=== PATIENT | female | born 1955 | race Caucasian/White ===

== ENCOUNTER 2024-12-22 09:00 | Outpatient (RCR) | payer MEDICARE, OTHER, SELFPAY ==
--- NOTE | 2024-09-07 10:02 | HP.PTEVAL_ITS ---
Patient's Visit Information Visit Information Visit Information: ABRAHAM ZHAO is a 69 year old F referred to Physical Therapy by BE HIGGINS with a diagnosis of Trochanteric bursitis left hip, M70.62. Date of Evaluation: 09/07/24 Physical Therapist: Pedro Neal Visit Plan Frequency: 2x /Week Duration: 4-6 Weeks Plan: Continue with improving hip strength especially hip abductor strengthening, core/back strengthening, and balance exercises. Use manual therapy and modalities as needed for pain control. Subjective Subjective: Pt. is a 69 y.o. female who has had left hip pain since around March with no specific injury that she is aware of. She had a couple cortisone injections which helped but then she continued to notice some pain. Her PLOF includes history of left THR in 2008. Pt. had x-ray of her left hip which was negative. Pt. denies any back pain. She also denies any radicular symptoms. Pt. denies any falls in the last six months. Pt. denies any numbness or tingling. She has difficulty with sit to stand transition, ascending/descending stairs, squatting, walking on uneven ground, and occasional yard work. Pt. is retired and was in sales previously. Her goal with physical therapy is to have less pain and be able to move better. She has had previous physical therapy for multiple things. She denies any pain currently, at worst 3/10 and describes the pain as dull. She will take Advil for pain. Her PMH includes skin cancer, multiple sclerosis, left THR, tonsillectomy, right ovary removed, , bilateral foot buniectomies, and right finger surgery. Pt. lives with her and her father in a one story home with two steps to enter. Her hobbies include gardening and reading. Objective Objective: Palpation- No tenderness to palpation Hip PROM- WNL bilaterally Pelvis and leg length- left leg shorter than right in supine. Normal pelvis. Left LE strength hip flexion 4+/5, abduction 4-/5, adduction 5/5, extension 4/5, knee flexion 5/5, knee extension 5/5, ankle DF 5/5, ankle PF 5/5 Right LE strength hip flexion 4+/5, abduction 4/5, adduction 5/5, extension 4/5, knee flexion 5/5, knee extension 5/5, ankle DF 5/5, ankle PF 5/5 Left tandem 17 secs, right tandem 30 secs Left SLS 1 sec, right 2 secs Gait- Pt. ambulates with genu valgus of right knee. Balance/Special Test Scores Lower Extremity Functional Score: 62 Goals Goal 1:: Pt. will improve left LE strength to 4+/5 for all motions in order to improve mobility. Goal Time Frame: 4-6 Weeks Goal 2:: Pt. will have no pain with sit to stand transition. Goal Time Frame: 4-6 Weeks Goal 3:: Pt. will be able to squat with no hip pain. Goal Time Frame: 4-6 Weeks Goal 4:: Pt. will be able to complete tandem stance for 30 secs in order to improve stability and balance. Goal Time Frame: 4-6 Weeks Goal 5:: Pt. will rate left hip pain at worst at 3/10 with ADL's. Goal Time Frame: 4-6 Weeks Goal 6:: Pt. will improve LEFS score <20% in order to improve mobility. Goal Time Frame: 4-6 Weeks Rehabilitation Potential Physical Therapy Diagnosis: Decreased LE strength, difficulty walking, balance impairment, and pain. Pt. presents at this time with left hip gluteal tendinopathy. Rehabilitation Potential: Good Anticipated Interventions Patient/Client Instruction: Educate patient on: Condition, Plan of Care and Benefits of Fitness Program For the Purpose of:: To decrease pain, To improve ability to perform ADL's, To improve performance and independence with ADL's, To assume or resume ADL's and To improve tolerance to ADL's Therapeutic Exercise to Include: Strength training, Endurance training, Balance training, Flexibilty training, Gait and locomotor training and Dynamic Lumbar Stabilization Comment: Continue with hip strengthening especially hip abductor strengthening, core, and back strengthening as well as balance exercises. For the Purpose of:: To decrease pain, To improve ability to perform ADL's, To improve performance and independence with ADL's, To improve endurance, To improve balance, To assume or resume ADL's and To improve tolerance to ADL's Functional Training to Include: ADL Training and Gait training For the Purpose of:: To decrease pain, To improve ability to perform ADL's, To improve performance and independence with ADL's, To improve balance, To improve safety with gait, To improve safety and To improve tolerance to ADL's Manual Therapy Techniques to Include: Mobilization and Soft tissue mobilization For the Purpose of:: To decrease pain, To improve ability to perform ADL's, To improve performance and independence with ADL's, To improve balance, To improve safety with gait, To assume or resume ADL's and To improve tolerance to ADL's TENS: Yes IF ES: Yes Cryotherapy (ice pack, ice massage): Yes Thermo therapy (hot pack): Yes For the Purpose of:: To decrease pain, To decrease swelling/inflammation, To improve ability to perform ADL's, To improve performance and independence with ADL's and To improve tolerance to ADL's Text: Thank you for the opportunity to evaluate your patient. For Medicare and Medicare HMO plans, please review the plan of care and approve it. It will need to be FAXED BACK to us at [phone] for Medicare purposes. For Medicare only, by signing this I certify the plan of care. Please let me know if there are questions or concerns regarding this plan of care. Physician Signature: Date:____
--- NOTE | 2024-10-12 09:08 | HP.PTREVAL ---
Re-Evaluation Intro: BERNADINE HOUSTON, ELVIS-C, It has been my pleasure to treat ABRAHAM ZHAO over the last 10 visits for Trochanteric bursitis left hip, M70.62. Please see the progress note below for an update on the physical therapy plan of care! Subjective Subjective: Pt. reports overall doing better. Pt. reports using her cane less, but still has too use it at times. Pain is mostly gone now adays. Objective Objective/Function: MMT: RLE: knee ext 35.5#, flex 21.4#; hip: flexion 34.4#, abd 27.7#, ext 29.6# LLE: knee: ext 36.4#, flex 19.7#, hip: [id number]#, abd 20.8#, ext 21.9# sit to stand: 8 without UEs. STAIRS: Pt. is able to complete with 1 HR with reciprocal pattern, but marked weakness in LLE with loading, ascending was more challenging than descending. Plan Plan Plan: I am extending her POC x2 per week for 4 weeks. Cont. to work on progressive strengthening of her glutes, glute med, abd hip flexors. Add in stability in SLS. Add in CKC dynamic stability, step ups and hip strengthening. Balance/Gait/Functional tests Balance/Special Test Scores Functional Gait Assessment Score: 19 % Disability: 36.6700 Lower Extremity Functional Score: 51 30 Second Chair Rise Test Seconds: 8 Goals Goals Goal 1:: Pt. will improve left LE strength to 4+/5 for all motions in order to improve mobility. Goal Time Frame: 4-6 Weeks Goal Progress: Progressing Goal 2:: Pt. will have no pain with sit to stand transition. Goal Time Frame: 4-6 Weeks Goal Progress: Progressing Goal 3:: Pt. will be able to squat with no hip pain. Goal Time Frame: 4-6 Weeks Goal Progress: Goal Met Goal 4:: Pt. will be able to complete tandem stance for 30 secs in order to improve stability and balance. Goal Time Frame: 4-6 Weeks Goal Progress: Progressing Goal 5:: Pt. will rate left hip pain at worst at 3/10 with ADL's. Goal Time Frame: 4-6 Weeks Goal Progress: Goal Met Goal 6:: Pt. will improve LEFS score <20% in order to improve mobility. Goal Time Frame: 4-6 Weeks Goal Progress: Progressing Anticipated Interventions Anticipated Interventions Patient/Client Instruction: Educate patient on: Condition, Plan of Care and Benefits of Fitness Program For the Purpose of:: To decrease pain, To improve ability to perform ADL's, To improve performance and independence with ADL's, To assume or resume ADL's and To improve tolerance to ADL's Therapeutic Exercise to Include: Strength training, Endurance training, Balance training, Flexibilty training, Gait and locomotor training and Dynamic Lumbar Stabilization Comment: Continue with hip strengthening especially hip abductor strengthening, core, and back strengthening as well as balance exercises. For the Purpose of:: To decrease pain, To improve ability to perform ADL's, To improve performance and independence with ADL's, To improve endurance, To improve balance, To assume or resume ADL's and To improve tolerance to ADL's Functional Training to Include: ADL Training and Gait training For the Purpose of:: To decrease pain, To improve ability to perform ADL's, To improve performance and independence with ADL's, To improve balance, To improve safety with gait, To improve safety and To improve tolerance to ADL's Manual Therapy Techniques to Include: Mobilization and Soft tissue mobilization For the Purpose of:: To decrease pain, To improve ability to perform ADL's, To improve performance and independence with ADL's, To improve balance, To improve safety with gait, To assume or resume ADL's and To improve tolerance to ADL's TENS: Yes IF ES: Yes Cryotherapy (ice pack, ice massage): Yes Thermo therapy (hot pack): Yes For the Purpose of:: To decrease pain, To decrease swelling/inflammation, To improve ability to perform ADL's, To improve performance and independence with ADL's and To improve tolerance to ADL's Re-Evaluation Ending Re-evaluation ending: Please do not hesitate to contact me at [phone] by phone or if you have questions or concerns regarding this new plan of care! Sincerely, Edgardo Sanchez DPT
--- NOTE | 2024-11-09 09:33 | HP.PTREVAL ---
Re-Evaluation Intro: BERNADINE HOUSTON, ELVIS-Chelo, It has been my pleasure to treat ABRAHAM ZHAO over the last 16 visits for Trochanteric bursitis left hip, M70.62. Please see the progress note below for an update on the physical therapy plan of care! Subjective Subjective: Pt. reports having some soreness, but not pain in her L hip. Pt. reports being tired from her workout yesterday. Pt. reports being being 60% better overall. Pt. uses cane in evenings, but not much throughout the day. Pt. has days where she feels great and days where she is more in the 50% range. Objective Objective/Function: ROM: good ROM throughout B hips. Good HS length. MMT: RLE: hip: flexion 32.1#, abd 29.5#, ext 21.4# LLE: hi: flexion 25.9#, abd 23.6#, ext 18.9# PT. is able to complete sit to stand from slightly elevated chair with 1 pad. Pt. did so without pain, but does have some marked weakness. Increased wt. shift to R side. GAIT: pt. ambulates with SPC with good tolerance and improved pattern. Pt. reports no marked hip pain with gait. Plan Plan Plan: Progress gym exercises. Focus on glute, core and BLE strengthening. Progress to I program. Balance/Gait/Functional tests Balance/Special Test Scores Functional Gait Assessment Score: 19 % Disability: 36.6700 Lower Extremity Functional Score: 60 30 Second Chair Rise Test Seconds: 8 Goals Goals Goal 1:: Pt. will improve left LE strength to 4+/5 for all motions in order to improve mobility. Goal Time Frame: 4-6 Weeks Goal Progress: Goal Met Goal 2:: Pt. will have no pain with sit to stand transition. Goal Time Frame: 4-6 Weeks Goal Progress: Goal Met Goal 3:: Pt. will be able to squat with no hip pain. Goal Time Frame: 4-6 Weeks Goal Progress: Goal Met Goal 4:: Pt. will be able to complete tandem stance for 30 secs in order to improve stability and balance. Goal Time Frame: 4-6 Weeks Goal Progress: Goal Met Goal 5:: Pt. will rate left hip pain at worst at 3/10 with ADL's. Goal Time Frame: 4-6 Weeks Goal Progress: Goal Met Goal 6:: Pt. will improve LEFS score <20% in order to improve mobility. Goal Time Frame: 4-6 Weeks Goal Progress: Progressing Anticipated Interventions Anticipated Interventions Patient/Client Instruction: Educate patient on: Condition, Plan of Care and Benefits of Fitness Program For the Purpose of:: To decrease pain, To improve ability to perform ADL's, To improve performance and independence with ADL's, To assume or resume ADL's and To improve tolerance to ADL's Therapeutic Exercise to Include: Strength training, Endurance training, Balance training, Flexibilty training, Gait and locomotor training and Dynamic Lumbar Stabilization Comment: Continue with hip strengthening especially hip abductor strengthening, core, and back strengthening as well as balance exercises. For the Purpose of:: To decrease pain, To improve ability to perform ADL's, To improve performance and independence with ADL's, To improve endurance, To improve balance, To assume or resume ADL's and To improve tolerance to ADL's Functional Training to Include: ADL Training and Gait training For the Purpose of:: To decrease pain, To improve ability to perform ADL's, To improve performance and independence with ADL's, To improve balance, To improve safety with gait, To improve safety and To improve tolerance to ADL's Manual Therapy Techniques to Include: Mobilization and Soft tissue mobilization For the Purpose of:: To decrease pain, To improve ability to perform ADL's, To improve performance and independence with ADL's, To improve balance, To improve safety with gait, To assume or resume ADL's and To improve tolerance to ADL's TENS: Yes IF ES: Yes Cryotherapy (ice pack, ice massage): Yes Thermo therapy (hot pack): Yes For the Purpose of:: To decrease pain, To decrease swelling/inflammation, To improve ability to perform ADL's, To improve performance and independence with ADL's and To improve tolerance to ADL's Re-Evaluation Ending Re-evaluation ending: Please do not hesitate to contact me at [phone] by phone or if you have questions or concerns regarding this new plan of care! Sincerely, Edgardo Sanchez DPT
--- NOTE | 2024-12-22 09:32 | HP.PTDCSUM_ITS ---
Discharge Summary D/C summary: It has been my pleasure to treat ABRAHAM ZHAO referred by BE HIGGINS, with the diagnosis of Trochanteric bursitis left hip, M70.62 for a total of 28 visit(s). Discharge Date: Please see the following information for a summary of their discharge status. Subjective Subjective: Pt. reports overall her L hip is doing great. She does have some small wound, drainage on her L medial distal LEs. Looks like it might be cellulitis. Pt. is going to urgent care later today. Pain L hip: Pain Intensity (Out of 10): 0 Overall Improvement % Improvement: 80 Objective Objective/Function: SLS: 15sec on R side, 13sec on L side STAIRS: normal reciprocal pattern 1 HR, slight functional weakness with ascending. GAIT: pt. ambulates well with SPC, she does have increased lateral sway without use of AD, but is still stable. Pt. is going to work out at local gym with seeing eye dog trainer. Pt. is overall doing much better and will be DC from PT at this point in time. She has met all goals. Goals Goal 1:: Pt. will improve left LE strength to 4+/5 for all motions in order to improve mobility. Goal Progress: Goal Met Goal 2:: Pt. will have no pain with sit to stand transition. Goal Progress: Goal Met Goal 3:: Pt. will be able to squat with no hip pain. Goal Progress: Goal Met Goal 4:: Pt. will be able to complete tandem stance for 30 secs in order to improve stability and balance. Goal Progress: Goal Met Goal 5:: Pt. will rate left hip pain at worst at 3/10 with ADL's. Goal Progress: Goal Met Goal 6:: Pt. will improve LEFS score <20% in order to improve mobility. Goal Progress: Goal Met Plan Plan: Pt. to be DC to [facility] at this point in time. Pt. has met all goals. D/C Information d/c sentence: If there are questions or concerns regarding this patient's physical therapy, please feel free to call me at [phone]. Thank you for the referral of this patient. Sincerely, Edgardo Sanders Sipos, DPT Balance/Gait/Functional tests Balance/Special Test Scores Functional Gait Assessment Score: 25 % Disability: 16.6700 Lower Extremity Functional Score: 63 TUG Test Time Seconds: 13.11 Tug Test: <20 sec.=mostly independent 30 Second Chair Rise Test Seconds: 11 Improvement % Improvement: 80
== END 2024-12-22 14:29 | disposition home or self-care (01) ==
LOC: PT 09:00
PROVIDERS: PCP Nurse Practitioner Family; Referring Provider Nurse Practitioner Family; Visit Provider Nurse Practitioner Family
DX: M70.62 Trochanteric bursitis, left hip (principal)
CPT/HCPCS: 97035; 97110; 97140; 97162; 97530